=== PATIENT | female | born 1965 | race Caucasian/White ===

== ENCOUNTER → 2017-03-29 | Day surgery (SDC) | payer OTHER ==
[~2017-03-29] VITALS: Ht 182.9 cm; Wt 97.7 kg
[~2017-03-29] MED LIST: ALLEGRA180 MG PO; DASETTA 1-35-21 EACH PO; FLONASE 50 MCG/16 GM NOSE; IBUPROFEN800 MG PO; ORTHO NOVUM PO; SUDAFED 12 HOU120 MG PO; TYLENOL EXTRA500 MG PO; ZANTAC (NON-FO150 MG PO
== END | disposition disaster alternative care site (69) ==
LOC: GPOC 03-23 11:00 → GEND 06:52 → GPOC 11:00
PROC: 0DJD8ZZ Inspection of Lower Intestinal Tract, Via Natural or Artificial Opening Endoscopic (ICD-10-PCS; principal; 2017-03-29)
DX: Z12.11 Encounter for screening for malignant neoplasm of colon (principal); J30.9 Allergic rhinitis, unspecified; Z88.0 Allergy status to penicillin; Z88.1 Allergy status to other antibiotic agents; Z88.2 Allergy status to sulfonamides; Z88.8 Allergy status to other drugs, medicaments and biological substances; Z79.899 Other long term (current) drug therapy; Z98.890 Other specified postprocedural states; Z90.81 Acquired absence of spleen
CPT/HCPCS: J2001; J7030

== ENCOUNTER → 2017-04-03 | Outpatient (CLI) | payer OTHER | END | disposition disaster alternative care site (69) | LOC: GBCOE 07:16 | DX: Z12.31 Encounter for screening mammogram for malignant neoplasm of breast (principal) | CPT/HCPCS: G0202 ==